=== PATIENT | female | born 1990 | race Hispanic/Latino ===

== ENCOUNTER 2024-11-09 21:10 | Emergency (ER) | payer OTHER ==
[2024-11-09] MEDS ORDERED: Ketorolac Tromethamine 30 MG (1 mL) VIAL ONE (21:34)
[2024-11-09] MEDS ORDERED: Ondansetron PF 4 MG/2 ML Vial ONE (21:34)
[2024-11-09 21:49] LABS: #Basophils 0.03 10x3/uL (0.0-0.2); #Eosinophils 0.09 10x3/uL (0.0-0.7); #Monocytes 0.49 10x3/uL (0.11-0.59); #Neutrophils 5.71 10x3/uL (1.40-6.50); %Basophils 0.3 % (0.0-1.0); %Eosinophils 1.0 % (0.0-10.0); %Lymphocytes 29.4 % (21.0-51.0); %Monocytes 5.4 % (0.0-10.0); %Neutrophils 63.3 % (42.0-75.0); Hematocrit 34.7 % (36.0-47.0); Hemoglobin 11.9 g/dL (12.0-16.0); Mean Corpuscular Hemoglobin 29.7 pg (27.0-31.0); Mean Corpuscular Volume 86.5 fL (78.0-98.0); Platelet Count 230 10x3/uL (130-400); Red Blood Cell (RBC) Count 4.01 mill/uL (4.20-5.40); White Blood Cell (WBC) Count 9.02 10x3/uL (4.8-10.8)
[2024-11-09 22:04] LABS: Bacteria/HPF None Seen HPF (None Seen); CAUTI Indications for Culture Dysuria,urgency,freq; Glucose, Urine (Dipstick) Normal (Negative); Leukocyte Negative Leu/uL (Negative); Protein, Urine (Dipstick) Negative (Neg-Trace); RBC/HPF 0-3 HPF (0-3); Specific Gravity, Urine 1.010 (1.002-1.036); WBC/HPF 0-3 HPF (0-3)
[2024-11-09 22:10] LABS: BHCG - Serum Negative (NEGATIVE); Pregs Control Background? CLEAR/WHITE (CLR/WHITE); Pregs Control Bar Appear? YES (CONTROL BAR)
[2024-11-09 22:11] LABS: Urine Culture Reflex No No
[2024-11-09 22:16] LABS: ALT (SGPT) 7 U/L (Less than 34); AST (SGOT) 23 U/L (11-34); Albumin 4.3 g/dL (3.1-4.5); Alkaline Phosphatase 77 U/L (40-110); Anion Gap 12 mmol/L (10-20); BUN (Urea Nitrogen) 7 mg/dL (7.0-18.7); Bilirubin, Total 0.4 mg/dL (0.3-1.2); Calc. Creatinine Clearance 0 mL/min (70-130); Calcium 8.8 mg/dL (7.8-10.44); Carbon Dioxide 23 mmol/L (22-29); Chloride 108 mmol/L (98-107); Globulin 2.8 g/dL (2.4-3.5); Glucose 108 mg/dL (70-105); Lipase 46 U/L (8-78); Potassium 3.6 mmol/L (3.5-5.1); Sodium 139 mmol/L (136-145)
== END 2024-11-10 00:12 ==
LOC: ERS 21:10 → EEVIPCON 21:10 → ERS 11-10 00:12
DX: N83.202 Unspecified ovarian cyst, left side (principal); Z55.6 Problems related to health literacy
CPT/HCPCS: 76856; 80053; 81001; 83690; 84703; 85025; 93976; 96374; 96375; J1885; J2270; J2405